=== PATIENT | female | born 1990 | race Caucasian/White ===

== ENCOUNTER 2016-12-16 02:07 | Emergency (ER) | payer OTHER ==
[~2016-12-16] VITALS: Ht 147.3 cm; Wt 66.0 kg
[2016-12-16 02:34] VITALS: BP 123/75
== END 2016-12-16 04:50 | disposition left against medical advice (07) ==
LOC: ER 03:20
DX: Z53.21 Procedure and treatment not carried out due to patient leaving prior to being seen by health care provider (principal)